=== PATIENT | female | born 1950 | race Two or more races ===

== ENCOUNTER → 2016-12-02 | Outpatient (CLI) | payer OTHER ==
[~2016-12-02] MED LIST: AMLO-512 PO; BACTDSB PO; FURO40 PO; GABA-529 PO; INSREG SQ; LEVO50CA2 PO; METF850T2 PO; METO50 PO; OMEP20 PO; SPIR50 PO; VALS160T2 PO
== END | disposition home or self-care (01) ==
LOC: LABPV 15:26
PROVIDERS: ATTEND Internal Medicine
DX: Z00.00 Encounter for general adult medical examination without abnormal findings (principal)
CPT/HCPCS: 86592

== ENCOUNTER → 2016-12-31 | Outpatient (CLI) | payer OTHER ==
[2017-01-02 06:06] LABS: GC DNA N.A. AMPLIFY Negative (Negative)
== END | disposition home or self-care (01) ==
LOC: LABPV 13:55
PROVIDERS: ATTEND Internal Medicine
DX: Z00.00 Encounter for general adult medical examination without abnormal findings (principal)
CPT/HCPCS: 87491; 87591